=== PATIENT | male | born 1965 | race Caucasian/White ===

== ENCOUNTER 2016-10-29 22:25 | Emergency (ER) | payer BC ==
[2016-10-29] MEDS ORDERED: KETOROLAC 30 MG/ML VIAL IM ONE (22:46)
--- NOTE | 2016-10-29 22:50 | Emergency Department Record ---
History of Present Illness - General Chief complaint: Extremity Problem Stated complaint: PAIN IN RT WRIST Time Seen by Provider: 10/29/16 22:40 Source: Patient Mode of Arrival: Ambulatory Limitations: No limitations - History of Present Illness Initial comments: 51 yo female presents with pain in the right wrist since waking up Sunday morning. The patient denies injury, fever, repetitive movements. No redness or obvious swelling. It hurts over the ulnar distal area with moving. No numbness or tingling. NO history of wrist surgery. He took Vicodin, Motirn and Tramadol Complaint: Extremity pain, Joint pain Onset/Timin -: Days(s) Location: Right Radiation: None Severity scale (1-10): 8 Quality: Other Consistency: Other Improves with: Other Worsens with: Other Associated Symptoms: Denies other symptoms - Related Data Home Medications Medication Instructions Recorded Confirmed Last Taken Aspirin [Aspirin EC] 325 mg PO DAILY 12/24/15 10/29/16 12/24/15 Atenolol/Chlorthalidone 50 mg PO DAILY 12/24/15 10/29/16 12/24/15 [Atenolol-Chlorthalidone 50-25] Simvastatin [Simvastatin] 40 mg PO DAILY 12/24/15 10/29/16 12/22/15 Cyclobenzaprine HCl [Flexeril] 10 mg PO TID 10/29/16 10/29/16 Unknown Glucosam/Chond/MSM/[place]/Hyal 1 each PO DAILY 10/29/16 10/29/16 Unknown [Glucosamine-Chondr Complex Tab] Losartan Potassium [Losartan 50 mg PO DAILY 10/29/16 10/29/16 Unknown Potassium] Salmon-3 Fatty Acids [Fish Oil] 300 mg PO DAILY 10/29/16 10/29/16 Unknown Previous Rx's Medication Instructions Recorded Ibuprofen [Motrin] 800 mg PO TID PRN #20 tab 12/24/15 Allergies Allergy/AdvReac Type Severity Reaction Status Date / Time No Known Drug Allergies Allergy Verified 12/24/15 10:25 Travel Screening - Travel/Exposure Within Last 30 Days Have you traveled within the last 30 days?: No - Travel/Exposure Within Last Year Have you traveled outside the [place] in the last year?: No - Additonal Travel Details Have you been exposed to anyone with a communicable illness?: No - Travel Symptoms Symptom Screening: None Review of Systems Constitutional: Denies: Chills, Fever, Malaise, Night sweats, Weakness Eyes: Denies: Eye discharge, Eye pain ENT: Denies: Congestion, Throat pain Respiratory: Denies: Cough, Dyspnea, Hemoptysis, Stridor, Wheezes Cardiovascular: Denies: Chest pain, Palpitations, Syncope Endocrine: Denies: Fatigue Gastrointestinal: Denies: Abdominal pain, Diarrhea, Nausea, Vomiting Genitourinary: Denies: Hematuria, Urgency Musculoskeletal: Reports: Arthralgia, Myalgia. Denies: Back pain, Joint swelling, Neck pain Skin: Denies: Bruising, Change in color, Rash Past Medical History - SOCIAL HISTORY Smoking Status: Never smoker Alcohol Use: None Drug Use: None - RESPIRATORY Hx Respiratory Disorders: No - CARDIOVASCULAR Hx Cardio Disorders: Yes Hx Hypertension: Yes - NEURO Hx Neuro Disorders: No - GI Hx GI Disorders: No - Hx Genitourinary Disorders: No - ENDOCRINE Hx Endocrine Disorders: Yes Hx Diabetes: Yes (NIDDM) - MUSCULOSKELETAL Hx Musculoskeletal Disorders: No - PSYCH Hx Psych Problems: No - HEMATOLOGY/ONCOLOGY Hx Hematology/Oncology Disorders: No Family Medical History Any Significant Family History?: No Hx Stroke: Mother Physical Exam - General General Appearance: Alert, Oriented x3, Cooperative, No acute distress Limitations: No limitations - Head Head exam: Normal inspection - Eye Eye exam: Normal appearance, PERRL. negative: Conjunctival injection, Scleral icterus - ENT ENT exam: Normal exam Ear exam: Normal external inspection Nasal Exam: Normal inspection Mouth exam: Normal external inspection Teeth exam: Normal inspection Throat exam: Normal inspection - Neck Neck exam: Normal inspection, Full ROM. negative: Tenderness - Respiratory Respiratory exam: Normal lung sounds bilaterally. negative: Respiratory distress - Cardiovascular Cardiovascular Exam: Regular rate, Normal rhythm, Normal heart sounds Peripheral Pulses: 2+: Radial (R) - Rectal Rectal exam: Deferred - exam: Deferred - Extremities Extremities exam: Normal inspection, Normal capillary refill, Tenderness. negative: Full ROM, Joint swelling Image of Hand: 1 - tender distal ulnar area, no redness or swelling, intact skin, pain with ROM, no abnormal warmth, no distal radial tenderness, no hand tenderness - Back Back exam: Reports: Full ROM - Neurological Neurological exam: Alert, Normal gait, Oriented X3 - Psychiatric Psychiatric exam: Normal affect, Normal mood - Skin Skin exam: Dry, Intact, Normal color, Warm Course Vital Signs 10/29/16 22:32 Temperature 97.7 F Pulse Rate 89 Respiratory 20 Rate Blood Pressure 150/93 Pulse Ox 96 - Reevaluation(s) Reevaluation #1: The XR was reviewed No acute changes He has some joint space narrowing suggestive of arthritis. 10/29/16 23:45 Disposition Disposition: Discharge Clinical Impression: Arthritis Disposition: Home, Self-Care Condition: (1) Good Instructions: Osteoarthritis (ED) Additional Instructions: Ice, Abhinav wrap and use the splint for support and comfort Follow up with your doctor this week Return if warm red, swollen or concerns Referrals: CHAR PALOMARES [DOCTOR OF OSTEOPATH] - [facility] Special[facility] [Provider Group] Forms: Patient Portal Access Time of Disposition: 23:52
[2016-10-29] MEDS ORDERED: METHYLPREDNISOLONE PF 125MG/VIAL IM STA (23:51)
--- NOTE | 2016-11-01 14:56 | RADIOLOGY REPORT ---
EXAM: WRIST, RIGHT 3 VIEWS HISTORY: UNEXPLAINED PAIN WITH SWELLING IN THE ULNAR AREA. NO KNOWN INJURY. TECHNIQUE: AP, oblique, and lateral views of the right wrist. COMPARISON: None. ENCOUNTER: Initial. FINDINGS: There is normal bone mineralization. No acute fracture, dislocation, or destructive bone lesion is seen. Mild osteoarthritic changes are scattered within the radiocarpal joint and intercarpal joints as well as the first and second carpal-metacarpal joints. Mild degenerative changes of the distal radioulnar joint also identified. No periarticular erosion. There is equivocal soft tissue swelling adjacent to the medial margin of the ulnar styloid. IMPRESSION: 1. NO ACUTE OSSEOUS ABNORMALITY IDENTIFIED. 2. MILD DIFFUSE DEGENERATIVE CHANGES OF THE WRIST. 3. MINIMAL SOFT TISSUE SWELLING QUESTIONED ADJACENT TO THE MEDIAL MARGIN OF THE ULNAR STYLOID. JOB NUMBER: [id number] MTDD
== END 2016-10-30 00:19 | disposition home or self-care (01) ==
LOC: ER 22:25
DX: M19.031 Primary osteoarthritis, right wrist (principal)
CPT/HCPCS: 29125; 99283; 96372; 99284; 73110; J1885; J2930